=== PATIENT | male | born 1980 | race Caucasian/White ===

== ENCOUNTER 2022-11-24 01:18 | Emergency (ER) | payer MEDICAID ==
[~2022-11-24] VITALS: Ht 180.3 cm; Wt 75.0 kg
[2022-11-24 01:22] VITALS: BP 187/73
== END 2022-11-24 03:50 | disposition left against medical advice (07) ==
LOC: ER 01:18
DX: S61.216A Laceration without foreign body of right little finger without damage to nail, initial encounter (principal); W18.39XA Other fall on same level, initial encounter; Y93.89 Activity, other specified; Y92.89 Other specified places as the place of occurrence of the external cause; Y99.8 Other external cause status
CPT/HCPCS: 99281